=== PATIENT | male | born 1970 | race Caucasian/White ===

== ENCOUNTER 2020-04-20 10:43 | Outpatient (CLI) | payer OTHER, SELFPAY ==
--- NOTE | ~2020-04-20 | XR_ITS ---
EXAMINATION: XR chest 2V DATE: 04/20/2020 11:02 INDICATION: Posterior left chest pain. TECHNIQUE: PA and lateral views of the chest were obtained. COMPARISON: Chest radiograph dated 07/27/2018 FINDINGS: The lungs remain clear with no focal airspace opacities, pulmonary edema, pleural effusion or pneumot horax. The cardiomediastinal silhouette is normal. Artery visualized chronic L1 compression fracture. Mild lower thoracic levocurvature. IMPRESSION: 1. No acute cardiopulmonary disease. Reviewed, dictated and finalized at location A.
== END 2020-04-20 10:44 | disposition home or self-care (01) ==
PROVIDERS: PCP Physician Assistant; Visit Provider Physician Assistant
DX: J98.4 Other disorders of lung (principal)
CPT/HCPCS: 71046

== ENCOUNTER 2020-07-31 10:24 | Emergency (ER) | payer OTHER, SELFPAY ==
--- NOTE | ~2020-07-31 | XR_ITS ---
XR lumbar spine 2-3V 07/31/2020 11:15 Indication: Low back pain Procedure: 3 views lumbar spine Comparison: Chest x-rays dated 04/20/2020 and 07/27/2018. Findings: There is a wedge compression fracture of L1, chronic. There are mild facet degenerative janiya nges at L5-S1. There is mild disc narrowing at L1-2. No evidence for spondylolisthesis. Mild dextrocu rvature. There are calcifications in the right mid abdomen which may represent gallstones. Impression: 1: Mild lumbar spondylosis. 2: Chronic L1 wedge compression deformity. 3: Possible cholelithiasis. Consider correlation with ultrasound. Reviewed, dictated and finalized at location B. LIANCE LEAD Impression: 1: Mild lumbar spondylosis. 2: Chronic L1 wedge compression deformity. 3: Possible cholelithiasis. Consider correlation with ultrasound.
[2020-07-31 10:45] VITALS: BP 166/82; PULSE 81; RESP 16; O2SAT 100
--- NOTE | 2020-07-31 11:03 | ED.BACK ---
HPI - Back Pain/Injury General Chief Complaint: Back Pain/Injury Stated Complaint: Back Injury Time Seen by Provider: 07/31/20 10:48 Source: patient Mode of arrival: ambulatory Limitations: no limitations History of Present Illness HPI Narrative: This is a 50-year-old male that presents to the emergency department for low back pain since yesterday. Reports after bending over and standing back up he noted sharp pain in his low back. Reports the pain radiates down his right leg. He took an anti-inflammatory and muscle relaxer yesterday with some relief. Denies fever, saddle anesthesia, or bowel/bladder incontinence. Related Data Allergies Allergy/AdvReac Type Severity Reaction Status Date / Time No Known Allergies Allergy Verified 07/31/20 10:51 Review of Systems Review of Systems: Narrative: CONSTITUTIONAL: Denies fever SKIN: Denies rash MUSCULOSKELETAL: Reports back pain, joint pain, and myalgia. NEUROLOGIC: Denies numbness, or weakness. All systems reviewed & are unremarkable except as noted in HPI and below PMFSH Social History Social History (Updated 07/31/20 @ 11:04 by Collette Olson PA-C) Smoking status: Current every day smoker Substance use: current Substance use type: marijuana Gender identity (if verbalized by the patient): Male Exam Narrative: Exam Narrative: GENERAL: Well-appearing, well-nourished, and in no acute distress. HEAD: Normocephalic, atraumatic. EYES: EOMI. CHEST: Clear to auscultation. No respiratory distress. No wheezes rales or rhonchi HEART: Regular rate and rhythm. No murmur heard. Normal peripheral pulses. BACK: No midline spinal tenderness EXTREMITIES: Normal range of motion. No edema. Normal DP pulses. Normal sensation. Strength equal in bilateral lower extremities (5/5) SKIN: Warm, dry, no rash. NEURO: No focal deficits. Alert and oriented x3. PSYCH: Normal mood and affect Course Vital Signs Vital signs: Vital Signs Pulse Rate 81 07/31/20 10:45 Respiratory Rate 16 07/31/20 10:45 Blood Pressure 166/82 H 07/31/20 10:45 Pulse Oximetry 100 07/31/20 10:45 Pulse Rate 81 07/31/20 10:45 Respiratory Rate 16 07/31/20 10:45 Blood Pressure 166/82 H 07/31/20 10:45 Pulse Oximetry 100 07/31/20 10:45 MDM - Back Pain/Injury MDM Narrative Medical decision making narrative: Patient presents to the emergency department for low back pain since yesterday. He is afebrile and nontoxic-appearing. No known recent injury or trauma. He is neurologically intact. Lumbar spine x-ray shows mild lumbar spondylosis. Also shows a chronic L1 compression deformity. Patient was updated on case findings. Patient was instructed to continue Tylenol and anti-inflammatories. Will be prescribed muscle relaxer as needed for pain as well as steroid taper. He is to follow-up with his primary care doctor. He was given warnings to return to the ER Imaging Data Radiologist's impression: ITS Impressions Lumbar Spine X-Ray 07/31/20 11:17 Impression: 1: Mild lumbar spondylosis. 2: Chronic L1 wedge compression deformity. 3: Possible cholelithiasis. Consider correlation with ultrasound. Critical Care Time Critical Care Time Critical Care Time: No Discharge Plan Discharge Clinical Impression: Low back pain Qualifiers: Chronicity: acute Back pain laterality: right Sciatica presence: with sciatica Sciatica laterality: sciatica of right side Qualified Code(s): M54.41 - Lumbago with sciatica, right side Patient Disposition: Home, Self-Care Condition: Stable Instructions: Acute Low Back Pain (ED) Additional Instructions: Return to the ER if you experience fever, weakness, numbness, bowel/bladder incontinence, or any other symptoms that are concerning to you Rest, use ice/heat, take anti-inflammatories (Aleve, Ibuprofen, Naproxen, etc) or Tylenol as needed for pain as well as muscle relaxer (diazepam) as needed for pain. Muscle relaxers can make y
[2020-07-31] MEDS: diazePAM INJ (*CRX) 10 MG/2 ML SYRINGE 5 MG IM (11:19)
[2020-07-31] MEDS: ACETAMINOPHEN 500 MG TABLET 1000 MG PO (11:19)
[2020-07-31] MEDS: KETOROLAC (*BKC) 60 MG/2 ML VIAL IM (11:20)
[2020-07-31 12:47] VITALS: BP 155/84; PULSE 78; RESP 20; TEMP 37.1; O2SAT 99
== END 2020-07-31 12:49 | disposition home or self-care (01) ==
PROVIDERS: Emergency Provider Emergency Medicine; PCP Physician Assistant
DX: M54.41 Lumbago with sciatica, right side (principal); F17.210 Nicotine dependence, cigarettes, uncomplicated
CPT/HCPCS: 72100; 96372; 99284; A9270; J1885; J3360

== ENCOUNTER 2020-08-05 16:41 | Outpatient (CLI) | payer OTHER, SELFPAY ==
--- NOTE | ~2020-08-05 | XR_ITS ---
EXAMINATION:XR_[id number]_CR DATE: 08/05/2020 17:16 INDICATION: Neck pain TECHNIQUE: AP, lateral, and odontoid views of the cervical spine are provided. COMPARISON: None FINDINGS: There are 2 mm of anterolisthesis of C3 on C4 at C4 on C5. The odontoid is intact. No fract ure is identified. The vertebral body heights are normal. There is mild loss of intervertebral disc s pace height at C6-7. Degenerative osteophytes project from the anterior endplates of C6 and C7. Preve rtebral soft tissues are normal. Multiple dental caries are noted. IMPRESSION: 1. Mild to moderate cervical spondylosis without acute findings. Reviewed, dictated and finalized at location A. STER CLERK
--- NOTE | ~2020-08-05 | XR_ITS ---
EXAMINATION: XR thoracic spine 3V DATE: 08/05/2020 17:15 INDICATION: Thoracic back pain TECHNIQUE: AP, lateral and lateral swimmer's views of the thoracic spine were obtained on five radiog raphs. COMPARISON: None. FINDINGS: There is no thoracic spine fracture, dislocation, or subluxation. A chronic L1 compression fracture is again noted. The vertebral body heights and alignment are normal. There is mild loss of i ntervertebral disc space height at multiple levels in the thoracic spine. Small degenerative osteophy adiel project from the anterior endplates of multiple vertebral bodies. IMPRESSION: 1. Mild thoracic spondylosis. Reviewed, dictated and finalized at location A. RIG SAWYER
== END 2020-08-05 16:42 | disposition home or self-care (01) ==
PROVIDERS: PCP Physician Assistant; Visit Provider Physician Assistant
DX: M47.894 Other spondylosis, thoracic region (principal); M47.892 Other spondylosis, cervical region
CPT/HCPCS: 72040; 72072

== ENCOUNTER 2020-11-29 11:34 | Emergency (ER) | payer OTHER, SELFPAY ==
[2020-11-29 11:51] VITALS: BP 181/83; PULSE 92; RESP 16; TEMP 36.9; O2SAT 100
--- NOTE | 2020-11-29 13:02 | ED.DENTAL ---
HPI - Dental/Oral General Chief complaint: Dental/Oral Stated complaint: tooth abcess Time Seen by Provider: 11/29/20 12:57 History of Present Illness HPI Narrative: Patient is a 50-year-old male who presents ER with dental pain. Began last night. Noticed some swelling that is increased throughout the day. No drainage. No fevers or chills or sweats. Does not have a dentist at this time. Related Data Allergies Allergy/AdvReac Type Severity Reaction Status Date / Time No Known Allergies Allergy Verified 11/29/20 12:55 Review of Systems Constitutional: Constitutional: Denies chills and Denies fever(s) ENT: Comments: Left lower jaw pain with facial swelling. PMFSH Past Medical History Medical History (Updated 11/29/20 @ 13:07 by Lalito Hicks MD) No significant past medical history Surgical History Surgical History (Updated 11/29/20 @ 13:05 by Lalito Hicks MD) No pertinent past surgical history Social History Social History (Updated 07/31/20 @ 11:04 by Collette Olson PA-C) Smoking status: Current every day smoker Substance use: current Substance use type: marijuana Gender identity (if verbalized by the patient): Male Exam Narrative: Exam Narrative: GENERAL: Well-appearing, well-nourished, and in no acute distress. HEAD: Normocephalic, atraumatic. ENT: Mucous membranes moist. Poor dentition. Abscess at base of tooth 19. Mild left lower facial swelling NEURO: Alert and oriented x3. PSYCH: Normal mood and affect. Course Vital Signs Vital signs: Vital Signs Temperature 98.4 F 11/29/20 11:51 Pulse Rate 92 11/29/20 11:51 Respiratory Rate 16 11/29/20 11:51 Blood Pressure 181/83 H 11/29/20 11:51 Pulse Oximetry 100 11/29/20 11:51 Temperature 98.4 F 11/29/20 11:51 Pulse Rate 92 11/29/20 11:51 Respiratory Rate 16 11/29/20 11:51 Blood Pressure 181/83 H 11/29/20 11:51 Pulse Oximetry 100 11/29/20 11:51 Procedures Abscess I/D oral: Date of Incision: 11/29/20 Time of Incision: 13:00 Local Anesthetic: none Technique: needle aspiration Irrigation: Yes (Patient wash mouth out with water) Packing used?: none I&D Results: Pus Discharge Plan Discharge Clinical Impression: Dental abscess Patient Disposition: Home, Self-Care Condition: Stable Instructions: Antibiotic Form, Dental Abscess (ED) Additional Instructions: Return to the ER if you cannot breathe, you cannot keep down food or water, you have swelling of your throat, or you have additional concerns. Use salt water rinses to help with healing. Continue to massage the area of abscess to get additional purulent material out of it. Prescriptions: New amoxicillin-pot clavulanate [Augmentin] 875-125 mg tablet 1 tablet PO Q12H Qty: 20 RF: 0 hydrocodone-acetaminophen 5-325 mg tablet 1 tablet PO Q6H PRN (Reason: pain) Qty: 10 RF: 0 No Action diazepam 5 mg tablet 5 mg PO BID PRN (Reason: muscle spasm) Qty: 10 RF: 0 methylprednisolone 4 mg tablets,dose pack See Rx Instructions .ROUTE .COMPLEX Qty: 21 RF: 0 Follow-up/Referrals: Dental Referral Line [Outside] - 1 Week PHYSICIAN,KIER DRIER [Primary Care Provider] - Stand Alone Forms: Work/School Release IP
== END 2020-11-29 13:21 | disposition home or self-care (01) ==
PROVIDERS: Emergency Provider Emergency Medicine
DX: K04.7 Periapical abscess without sinus (principal); F17.200 Nicotine dependence, unspecified, uncomplicated
CPT/HCPCS: 10060; 41800; 99283